=== PATIENT | male | born 1995 | race Caucasian/White ===

== ENCOUNTER 2020-04-06 23:19 | Emergency (ER) | payer MEDICAID ==
[~2020-04-06] VITALS: Ht 160 cm; Wt 72.7 kg
[2020-04-06 23:26] VITALS: BP 149/95; Ht 160 cm; Wt 72.7 kg
[2020-04-06] MEDS ORDERED: DITROPAN XL 1010 MG PO (23:27)
[2020-04-06 23:52] LABS: HEMATOCRIT 41.7 % (42.0-54.0); HEMOGLOBIN 13.9 g/dL (13.5-17.5); LYMPHOCYTES 17.5 % (15-50); MCH 29.6 pg (26.0-34.0); MCHC 33.3 g/dL (31.0-37.0); MCV 88.7 fL (80.0-100.0); MEAN PLATELET VOLUME 10.3 fL (7.4-10.4); NEUTROPHILS 75.3 % (40-80); PLATELET COUNT 272 10x3/uL (130-400); RDW 12.2 % (11.5-14.5); WBC 10.5 10x3/uL (4.8-10.8)
[2020-04-06 23:54] LABS: ANION GAP 8.9 mmol/L (8-16); CALCIUM 9.7 mg/dL (8.5-10.1); CARBON DIOXIDE 27.5 mmol/L (21.0-32.0); CREATININE - SERUM 1.3 mg/dL (0.6-1.3); POTASSIUM - SERUM 4.4 mmol/L (3.5-5.1)
[2020-04-07] LABS: ALBUMIN 3.9 g/dL (3.4-5.0); BILIRUBIN - TOTAL 0.38 mg/dL (0.2-1.3); PROTEIN - SERUM 8.3 g/dL (6.4-8.2)
[2020-04-07 00:18] LABS: BILIRUBIN NEGATIVE (NEGATIVE); KETONE NEGATIVE (NEGATIVE); NITRITE POSITIVE (NEGATIVE); UROBILINOGEN NORMAL mg/dL (< 2)
[2020-04-07 00:20] LABS: BACTERIA MANY HPF (NONE SEEN); EPITHELIAL CELLS 0-5 /hpf (0-5)
[2020-04-07] MEDS ORDERED: BACTRIM DS TAB1 EAC1 PO (01:45)
== END 2020-04-07 02:03 | disposition home or self-care (01) ==
LOC: D.ER 23:19
PROVIDERS: Emergency Medicine
DX: N39.0 Urinary tract infection, site not specified (principal); N50.819 Testicular pain, unspecified

== ENCOUNTER 2020-11-08 19:18 | Emergency (ER) | payer MEDICAID ==
[~2020-11-08] VITALS: Ht 160 cm; Wt 72.7 kg
[~2020-11-08 19:18] MED LIST: BACTRIM DS TAB1 EAC1 PO; DITROPAN XL 1010 MG PO
[2020-11-08 19:25] VITALS: BP 149/90; Ht 160 cm; Wt 72.7 kg
== END 2020-11-08 21:42 | disposition left against medical advice (07) ==
LOC: D.ER 19:18
DX: R10.9 Unspecified abdominal pain (principal); K59.00 Constipation, unspecified; R11.10 Vomiting, unspecified